=== PATIENT | female | born 1960 | race Caucasian/White ===

== ENCOUNTER 2025-05-14 08:23 | Inpatient (IN) | payer OTHER, SELFPAY ==
[2025-05-12 17:22] VITALS: BP 109/81
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
[2025-05-12 18:40] VITALS: BMI 34.5
[2025-05-12] MEDS: MORPHINE SULFATE 4 MG IV ×2 (18:48→21:45)
[2025-05-12] MEDS: NSS 1000 IV ×2 (18:48→21:05)
[2025-05-12 19:09] LABS: Hematocrit 35.9 % (37.0-47.0); Hemoglobin 12.3 g/dL (12.0-16.0); Mean Corp Hgb Conc. 34.3 g/dL (33.0-37.0); Mean Corpuscular Volume 89.3 fL (81.0-99.0); Nucleated Red Blood Cells % 0 %; Platelet Count 254 10^3/uL (130-400); Red Cell Dist. Width 13.2 % (11.5-14.5)
[2025-05-12] MEDS: ZOFRAN 4 MG IV (19:12)
[2025-05-12 19:15] LABS: ALT (SGPT) 66 U/L (0-35); AST (SGOT) 181 U/L (14-36); Albumin 4.0 g/dl (3.5-5.0); Alkaline Phosphatase 73 U/L (38-126); Blood Urea Nitrogen 25 mg/dl (7-17); Calcium 9.1 mg/dl (8.4-10.2); Carbon Dioxide 24 mmol/L (22-30); Chloride 102 mmol/L (98-107); Estimated Creatinine Clearance 102 ml/min; Glucose 84 mg/dl (70-99); Potassium 4.0 mmol/L (3.5-5.1); Sodium 135 mmol/L (135-145); Total Protein 6.6 g/dl (6.3-8.2); eGFR > 60.00
--- NOTE | 2025-05-12 21:45 | HPS.HSE ---
Family Physician
-
Family Physician: Nile Grigsby
Chief Complaint
-
R Knee Pain, Fall at Home
History of Present Illness
Patient is a 64y F with PMH significant for GERD and depression who presents to ED complaining of R knee pain s/p fall at home. Patient states that she slipped on a wobbly step on evening, falling and striking her R knee on the ground.
Patient had significant difficulty getting up and was unable to reach her phone to call for help. She states that she was on the ground for about 3 hours before she was able to crawl back inside. She states that she has been 'crab-walking' around
her house for the past three days - unable to stand. Her phone remained on the ground outside and she was unable to call for help. This AM she as discovered by friend and 911 was called.
Patient is unable to stand / ambulate due to pain.
She denies any head injury with the fall. No LOC. She denies any prodrome of lightheadedness, dizziness, chest pain or dyspnea.
Medical History
Past Medical History
Past Medical History: Reports Other
Additional Past Medical History:
Anxiety / Depression
ADD
GERD
IBS
Past Surgical History: Reports Other
Additional Past Surgical History:
Right Femur ORIF
Irvin Removal Revision x Multiple Episodes ([facility])
Social History
Tobacco: Smoker (Current every day smoker.)
Alcohol: None
Drug: None
Family History
Family History: Not pertinent
Allergies / Home Medications
Allergies reflects when Allergies were last updated in [employer].
Home Medications with original date entered in [employer]
Allergy/Medication List:
Allergies
Allergy/AdvReac Type Severity Reaction Status Date / Time
No Known Allergies Allergy Verified 05/12/25 17:22
Home Medications
atorvastatin 40 mg tablet 40 mg PO DAILY 05/12/25
bupropion HCl 300 mg 24 hr tablet, extended release 300 mg PO DAILY 05/12/25
clonazepam 0.5 mg tablet 0.5 mg PO BID PRN anxiety 05/12/25
dextroamphetamine-amphetamine 20 mg tablet (Adderall) 20 mg PO BID 05/12/25
pantoprazole 40 mg tablet,delayed release 40 mg PO DAILY 05/12/25
trazodone 50 mg tablet 50 mg PO HS 05/12/25
Review of Systems
-
History Source: Patient
A 12 point ROS was completed and negative except as noted: Yes
Constitutional: Denies Fever or Chills
Respiratory: Denies Cough or Trouble Breathing
Cardiac: Denies Chest Pain or Palpitations
Abdomen/GI: Denies Abdominal Pain, Nausea, Vomiting or Diarrhea
: Denies Dysuria, Frequency or Flank Pain
Musculoskeletal: Reports Joint Pain
Neurological: Denies Dizzy or Headache
Psych: Denies Depression or Anxiety
Physical Exam
Vital Signs
Vital Signs
Temp Pulse Resp BP Pulse Ox
98.7 F 113 16 109/81 98
05/12/25 17:22 05/12/25 17:22 05/12/25 17:22 05/12/25 17:22 05/12/25 18:32
Physical Exam
General: Other (64y F in no acute distress.)
HEENT: Moist mucous membranes and PERRLA
Respiratory: Clear; No Wheezes, Rales or Rhonchi
Cardiac: S1/S2 and Regular Rhythm; No Murmur
GI: Soft, Non Tender, Non Distended and Normal Bowel Sounds
Musculoskeletal: No Clubbing, No Cyanosis and Other (Ecchymosis and swelling around the R knee. Moves LE at hip and knee - but with noted discomfort. Significant pain with weight bearing / standing / attempts to ambulate.)
Neuro: AO x 3
Laboratory Results
-
05/12/25 18:47
05/12/25 18:47
Laboratory Results
Total Bilirubin 1.2 mg/dl (0.2-1.3) 05/12/25 18:47
AST 181 U/L (14-36) H 05/12/25 18:47
ALT 66 U/L (0-35) H 05/12/25 18:47
Alkaline Phosphatase 73 U/L (38-126) 05/12/25 18:47
Impression/Plan
-
A/P: Patient is a 64y F with PMH significant for depression and GERD who presents to ED complaining of R knee pain s/p fall at home on evening.
Right Patella Fracture
Ambulatory Dysfunction secondary to the above
Fall at Home
- Observe overnight for pain control / supportive care.
- Patient unable to stand / ambulate safely at this time.
- Pain control, PT / OT evaluations.
- Maintain knee immobilizer.
- Ortho consult for additional recommendations.
- Follow for improvement in pain.
Anxiety / Depression
- Stable. Continue usual home med regimen.
- Can hold Adderall acutely.
IBS / GERD
- Stable. Continue PPI.
DVT Prophylaxis: Subcut Heparin
Code Status: Full
[2025-05-12 23:30] VITALS: BP 133/68; BMI 34.2
[2025-05-13] MEDS: DESYREL 50 MG PO ×2 (00:03→21:49)
[2025-05-13] MEDS: NSS 1000 IV ×3 (00:04→17:41)
[2025-05-13] MEDS: DILAUDID 0.5 MG IV ×3 (05:55→20:18)
[2025-05-13 06:00] VITALS: BMI 34.4
[2025-05-13 07:25] LABS: Hematocrit 33.8 % (37.0-47.0); Hemoglobin 11.0 g/dL (12.0-16.0); Mean Corp Hgb Conc. 32.5 g/dL (33.0-37.0); Mean Corpuscular Volume 93.4 fL (81.0-99.0); Platelet Count 241 10^3/uL (130-400); Red Cell Dist. Width 13.4 % (11.5-14.5)
[2025-05-13 08:11] LABS: Blood Urea Nitrogen 16 mg/dl (7-17); Calcium 7.9 mg/dl (8.4-10.2); Carbon Dioxide 27 mmol/L (22-30); Chloride 109 mmol/L (98-107); Estimated Creatinine Clearance 102 ml/min; Glucose 91 mg/dl (70-99); Potassium 3.4 mmol/L (3.5-5.1); Sodium 137 mmol/L (135-145); eGFR > 60.00
[2025-05-13 08:18] VITALS: BP 96/54
[2025-05-13] MEDS: HEPARIN 5000 UNITS SC ×2 (08:30→20:12)
[2025-05-13] MEDS: WELLBUTRIN XL (24 hour extended release) 300 MG PO (08:31)
[2025-05-13] MEDS: TYLENOL 1000 MG PO ×3 (08:31→21:48)
[2025-05-13] MEDS: PROTONIX 40 MG PO (08:31)
[2025-05-13] MEDS: LYRICA 75 MG PO ×2 (08:33→20:11)
[2025-05-13] MEDS: KCL 20 MEQ PO (10:13)
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
--- NOTE | 2025-05-13 11:34 | W.PN.HOSP.TC ---
Today's Communication/Plan
-
Assessment / Plan
Assessment / Plan
General: No Apparent Distress, Comfortable and Conversant
HEENT: NormoCephalic, Moist mucous membranes, Atraumatic
Respiratory: Clear and Non Labored Respirations
Cardiac: S1/S2 and Regular Rhythm; No Rub or Gallop
GI: Soft, Non Tender, Non Distended and Normal Bowel Sounds
Musculoskeletal: No Edema, right knee immobilizer in place
Skin: Warm and dry
: NO Armstrong
Neuro: Awake, Alert, Nonfocal/grossly intact
Psych: Calm and Intact Judgment/Insight
Ms. Diaz is a 64-year-old female with history of GERD, anxiety and depression, IBS, ADD who presented with right knee pain. Her pain is the result of a mechanical fall 3 days prior to arrival. She has had difficulty ambulating since that time has
been crawling around her house since her injury. Imaging in the ED showed a nondisplaced right patellar fracture. She was admitted for further evaluation and management.
Nondisplaced right patellar fracture:
- Secondary to trauma from mechanical fall at home
- Evaluated by Ortho, nonoperative management with knee immobilizer full-time for 4 weeks, then only during the day for 2 weeks
- To be evaluated by PT/OT
- Will need outpatient Ortho follow-up in 2 weeks for repeat x-ray
Acute traumatic rhabdomyolysis:
- Suspect secondary to fall at home
- Continue aggressive IV fluids
- Renal function currently within normal limits
- Monitor CK level, 7800 => 4600
Transaminitis:
- AST significantly more elevated than ALT
- No evidence of cholestasis
- Will inquire about alcohol use
- Monitor for resolution, if no improvement will investigate further with dedicated imaging
Hypokalemia:
- Mild with serum potassium 3.4 today
- Will replete cautiously considering current rhabdomyolysis
DVT prophylaxis: Subcu heparin
CODE STATUS: Full code
Anticipated Discharge: 24 - 48 hours
Subjective/Interval History
-
Date of Service: May 13, 2025
Patient was seen and examined at bedside this morning. Right knee immobilizer in place. Pain well-managed.
Objective Data
-
Labs:
Laboratory Results
05/13/25
05:29
WBC 8.9
Hgb 11.0 L
Hct 33.8 L
Plt Count 241
Sodium 137
Potassium 3.4 L
Chloride 109 H
Carbon Dioxide 27
BUN 16
Creatinine 0.6
Glucose 91
Calcium 7.9 L
Vital Signs:
Vital Signs
Temp Pulse Resp BP Pulse Ox
98.3 F 97 18 96/54 94
05/13/25 08:18 05/13/25 08:18 05/13/25 08:18 05/13/25 08:18 05/13/25 08:18
I&O
05/12/25 05/13/25 05/14/25
06:59 06:59 06:59
Intake Total 480 / 480
Output Total 250 / 250
Balance 230 / 230
Review of Systems
-
History Source: Patient
All other systems: Reviewed and negative
Musculoskeletal: Reports Joint Pain (Right knee pain)
Physical Exam
-
General: No Apparent Distress
[2025-05-13] MEDS: FLUSH (NSS) 1 FLUSH IV (12:09)
[2025-05-13 12:23] VITALS: BP 106/58; PULSE 93; O2SAT 94
[2025-05-13 12:25] VITALS: BP 106/58; PULSE 93
--- NOTE | 2025-05-13 13:09 | CM ---
Addendum entered by Carine Dyson 05/14/25 08:01:
CM receive message after hours from DIl with [employer] policy number
#[phone]
Update to admissions
Original Note:
CM met with pt bedside
Pt resides alone in a 1st floor apartment with 2+2 FRANKIE
[address] [address]
Pt notes she is independent without any ADs, drives+
She has a WW and SPC from prior hip surgery
Pt does not have a POA
Pt ntoed she has [employer] as secondayr, does not have card with her
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
PCP- Nile Grigsby
Rx- [facility]
Pt requested to add her son/Joao and DIL/Desirae to contact list
Update to admissions
Call to [facility]/Desirae with update
PT/OT pending
Pt with R Patella fx, medical management
WBAT w/ knee immobilizer
Pt is OBS-BENOIT completed, copy provided
Plan to F/U with [facility] waiver regarding edibility if SNF needs on dc
[place] [facility] info provided to [facility] for home and community based services
She noted forgetfulness and functional decline
Discharge Disposition- home with VN vs SNF
[2025-05-13 15:58] VITALS: BP 121/68
--- NOTE | 2025-05-13 16:40 | PTCARENOTE ---
Pt AAO x3, PRADO;OOB to chair with assist x1-2/walker, wears RLE immobilizer. VSS. On room air- pulseox 93%, no SOB noted. Abd large, soft, brittney PO well. Incont large amts clear anabella urine, pt requesting Purewick catheter d/t discomfort when
attempting to get OOB/use BSC; does not qant to use bedpan. IV NSS @ 125 ml/hr infusing via Rt hand site without sx of infiltration. Will continue to monitor.
[2025-05-13 23:01] VITALS: BP 104/54
[2025-05-14] MEDS: NSS 1000 IV ×3 (01:20→21:23)
[2025-05-14 05:49] VITALS: BMI 34.9
[2025-05-14] MEDS: DILAUDID 0.5 MG IV (06:36)
[2025-05-14 07:00] VITALS: BP 127/67
[2025-05-14] MEDS: LYRICA 75 MG PO ×2 (07:32→19:24)
[2025-05-14] MEDS: WELLBUTRIN XL (24 hour extended release) 300 MG PO (07:33)
[2025-05-14] MEDS: HEPARIN 5000 UNITS SC ×2 (07:33→19:24)
[2025-05-14] MEDS: PROTONIX 40 MG PO (07:33)
[2025-05-14] MEDS: TYLENOL 1000 MG PO ×3 (07:33→21:25)
[2025-05-14 07:35] LABS: Hematocrit 33.1 % (37.0-47.0); Hemoglobin 11.0 g/dL (12.0-16.0); Mean Corp Hgb Conc. 33.2 g/dL (33.0-37.0); Mean Corpuscular Volume 94.0 fL (81.0-99.0); Nucleated Red Blood Cells % 0 %; Platelet Count 222 10^3/uL (130-400); Red Cell Dist. Width 13.6 % (11.5-14.5)
[2025-05-14 08:03] LABS: ALT (SGPT) 54 U/L (0-35); AST (SGOT) 93 U/L (14-36); Albumin 2.9 g/dl (3.5-5.0); Alkaline Phosphatase 52 U/L (38-126); Blood Urea Nitrogen 7 mg/dl (7-17); Calcium 7.9 mg/dl (8.4-10.2); Carbon Dioxide 30 mmol/L (22-30); Chloride 108 mmol/L (98-107); Estimated Creatinine Clearance 103 ml/min; Glucose 88 mg/dl (70-99); Potassium 3.6 mmol/L (3.5-5.1); Sodium 139 mmol/L (135-145); Total Protein 5.4 g/dl (6.3-8.2); eGFR > 60.00
[2025-05-14 09:32] VITALS: BP 121/63; BP 121/68; PULSE 91; O2SAT 96
[2025-05-14] MEDS: ROXICODONE 5 MG PO ×2 (10:31→19:23)
[2025-05-14] MEDS: SENOKOT 8.6 MG PO ×2 (10:31→19:23)
--- NOTE | 2025-05-14 14:13 | W.PN.HOSP.TC ---
Today's Communication/Plan
-
Assessment / Plan
Assessment / Plan
General: No Apparent Distress, Comfortable and Conversant
HEENT: NormoCephalic, Moist mucous membranes, Atraumatic
Respiratory: Clear and Non Labored Respirations
Cardiac: S1/S2 and Regular Rhythm; No Rub or Gallop
GI: Soft, Non Tender, Non Distended and Normal Bowel Sounds
Musculoskeletal: No Edema, right knee immobilizer in place
Skin: Warm and dry
: NO Armstrong
Neuro: Awake, Alert, Nonfocal/grossly intact
Psych: Calm and Intact Judgment/Insight
Ms. Diaz is a 64-year-old female with history of GERD, anxiety and depression, IBS, ADD who presented with right knee pain. Her pain is the result of a mechanical fall 3 days prior to arrival. She has had difficulty ambulating since that time has
been crawling around her house since her injury. Imaging in the ED showed a nondisplaced right patellar fracture. She was admitted for further evaluation and management.
Nondisplaced right patellar fracture:
- Secondary to trauma from mechanical fall at home
- Evaluated by Ortho, nonoperative management with knee immobilizer full-time for 4 weeks, then only during the day for 2 weeks
- Will need outpatient Ortho follow-up in 2 weeks for repeat x-ray
- PT/OT recommending SNF
Acute traumatic rhabdomyolysis:
- Suspect secondary to fall at home
- Continue aggressive IV fluids
- Renal function remains within normal limits
- Monitor CK level, 7800 => 4600 => 1400
- If CK level drops below 1000 can discontinue IV fluids and discharge with repeat labs in a few days
Transaminitis:
- AST significantly more elevated than ALT
- No evidence of cholestasis
- Improving, monitor until within normal limits
Hypokalemia:
- Resolved, will monitor
DVT prophylaxis: Subcu heparin
CODE STATUS: Full code
Anticipated Discharge: 24 - 48 hours
Subjective/Interval History
-
Date of Service: May 14, 2025
Patient was seen and examined at bedside this morning. Pain well-controlled. Remains on IV fluids for rhabdo.
Objective Data
-
Labs:
Laboratory Results
05/14/25
06:48
WBC 7.1
Hgb 11.0 L
Hct 33.1 L
Plt Count 222
Sodium 139
Potassium 3.6
Chloride 108 H
Carbon Dioxide 30
BUN 7
Creatinine 0.5 L
Glucose 88
Calcium 7.9 L
Total Bilirubin 0.5
AST 93 H
ALT 54 H
Alkaline Phosphatase 52
Vital Signs:
Vital Signs
Temp Pulse Resp BP Pulse Ox
98.7 F 90 12 127/67 95
05/14/25 07:00 05/14/25 07:00 05/14/25 07:00 05/14/25 07:00 05/14/25 11:16
I&O
05/13/25 05/14/25 05/15/25
06:59 06:59 06:59
Intake Total 480 / 480 3540 / 3540 120 / 120
Output Total 250 / 250 1350 / 1350 450 / 450
Balance 230 / 230 2190 / 2190 -330 / -330
Review of Systems
-
History Source: Patient
All other systems: Reviewed and negative
Musculoskeletal: Reports Joint Pain (Right knee pain)
Physical Exam
-
General: No Apparent Distress
[2025-05-14 15:00] VITALS: BP 108/68
--- NOTE | 2025-05-14 16:28 | CM ---
Pt changed to Inpatient IMM reviewed signed on chart.
PAC data reviewed with pt .
PT indicate SNF at discharge.
Pt lives by herself and realizes she needs SNF.
PLAN Enter SNF choices after picked
[2025-05-14] MEDS: DESYREL 50 MG PO (21:25)
[2025-05-14 23:09] VITALS: BP 114/64
[2025-05-15 05:26] VITALS: BMI 34.7
[2025-05-15 06:30] LABS: Hematocrit 34.5 % (37.0-47.0); Hemoglobin 11.6 g/dL (12.0-16.0); Mean Corp Hgb Conc. 33.6 g/dL (33.0-37.0); Mean Corpuscular Volume 92.2 fL (81.0-99.0); Nucleated Red Blood Cells % 0 %; Platelet Count 250 10^3/uL (130-400); Red Cell Dist. Width 13.5 % (11.5-14.5)
[2025-05-15 07:04] LABS: Blood Urea Nitrogen 5 mg/dl (7-17); Calcium 8.5 mg/dl (8.4-10.2); Carbon Dioxide 30 mmol/L (22-30); Chloride 108 mmol/L (98-107); Estimated Creatinine Clearance 103 ml/min; Glucose 86 mg/dl (70-99); Potassium 3.5 mmol/L (3.5-5.1); Sodium 141 mmol/L (135-145); eGFR > 60.00
[2025-05-15 07:30] VITALS: BP 188/77
[2025-05-15] MEDS: SENOKOT 8.6 MG PO (07:46)
[2025-05-15] MEDS: WELLBUTRIN XL (24 hour extended release) 300 MG PO (07:46)
[2025-05-15] MEDS: LYRICA 75 MG PO ×2 (07:46→19:55)
[2025-05-15] MEDS: PROTONIX 40 MG PO (07:46)
[2025-05-15] MEDS: NSS 1000 IV ×2 (07:46→17:33)
[2025-05-15] MEDS: TYLENOL 1000 MG PO ×3 (07:47→22:27)
[2025-05-15] MEDS: HEPARIN 5000 UNITS SC ×2 (07:47→19:57)
[2025-05-15] MEDS: ROXICODONE 5 MG PO ×2 (12:54→17:32)
--- NOTE | 2025-05-15 14:03 | W.PN.HOSP.TC ---
Today's Communication/Plan
-
Assessment / Plan
Assessment / Plan
General: No Apparent Distress, Comfortable and Conversant
HEENT: NormoCephalic, Moist mucous membranes, Atraumatic
Respiratory: Clear and Non Labored Respirations
Cardiac: S1/S2 and Regular Rhythm; No Rub or Gallop
GI: Soft, Non Tender, Non Distended and Normal Bowel Sounds
Musculoskeletal: No Edema, right knee immobilizer in place
Skin: Warm and dry
: NO Armstrong
Neuro: Awake, Alert, Nonfocal/grossly intact
Psych: Calm and Intact Judgment/Insight
Ms. Diaz is a 64-year-old female with history of GERD, anxiety and depression, IBS, ADD who presented with right knee pain. Her pain is the result of a mechanical fall 3 days prior to arrival. She has had difficulty ambulating since that time has
been crawling around her house since her injury. Imaging in the ED showed a nondisplaced right patellar fracture. She was admitted for further evaluation and management.
Nondisplaced right patellar fracture:
- Secondary to trauma from mechanical fall at home
- Evaluated by Ortho, nonoperative management with knee immobilizer full-time for 4 weeks through 06/09/2025, then can wear the immobilizer only during the day for 2 weeks
- Will need outpatient Ortho follow-up in 2 weeks around 05/26 for repeat x-ray
- PT/OT recommending SNF, placement pending, medically stable
Acute traumatic rhabdomyolysis:
- Suspect secondary to fall at home
- Renal function remains within normal limits
- Monitor CK level, 7800 => 4600 => 1400 => 936
- Will continue IV fluids through today while still hospitalized
Transaminitis:
- AST significantly more elevated than ALT
- No evidence of cholestasis
- Improving, monitor until within normal limits
Hypokalemia:
- Resolved, will monitor
DVT prophylaxis: Subcu heparin
CODE STATUS: Full code
Anticipated Discharge: 24 - 48 hours
Subjective/Interval History
-
Date of Service: May 15, 2025
Patient was seen and examined this morning. CK now less than 1000. Feeling well and awaiting SNF placement.
Objective Data
-
Labs:
Laboratory Results
05/15/25
06:03
WBC 5.6
Hgb 11.6 L
Hct 34.5 L
Plt Count 250
Sodium 141
Potassium 3.5
Chloride 108 H
Carbon Dioxide 30
BUN 5 L
Creatinine 0.5 L
Glucose 86
Calcium 8.5
Vital Signs:
Vital Signs
Temp Pulse Resp BP Pulse Ox
98.5 F 80 18 188/77 92
05/15/25 07:30 05/15/25 07:30 05/15/25 07:30 05/15/25 07:30 05/15/25 07:45
I&O
05/14/25 05/15/25 05/16/25
06:59 06:59 06:59
Intake Total 3540 / 3540 3000 / 3000
Output Total 1350 / 1350 450 / 450
Balance 2190 / 2190 2550 / 2550
Review of Systems
-
History Source: Patient
All other systems: Reviewed and negative
Physical Exam
-
General: No Apparent Distress
[2025-05-15 15:24] VITALS: BP 124/81; BP 150/84; PULSE 98; O2SAT 97
--- NOTE | 2025-05-15 15:37 | CM ---
PAC data reviewed with pt .
[facility]
Referrals placed in care port.
PLAN Locate SNF
--- NOTE | 2025-05-15 16:50 | PTCARENOTE ---
Pt AAO x3, anxious at times. PRADO; OOB to chair/BSC with assist x1/cane, brittney well. Pt wearing RLE immobilizer. VSS. On room air- pulse ox 97%, no SOB noted. Abd obese, soft, brittney PO well. Voids on BSC without difficulty Resting in bed at
present, no c/o. Will continue to monitor.
[2025-05-15] MEDS: SENOKOT PO (19:57)
[2025-05-15] MEDS: DESYREL 50 MG PO (22:27)
[2025-05-15 23:30] VITALS: BP 112/80
[2025-05-16] MEDS: NSS 1000 IV (02:05)
[2025-05-16 06:00] VITALS: BMI 34.0
[2025-05-16 06:34] LABS: Hematocrit 34.4 % (37.0-47.0); Hemoglobin 11.6 g/dL (12.0-16.0); Mean Corp Hgb Conc. 33.7 g/dL (33.0-37.0); Mean Corpuscular Volume 91.7 fL (81.0-99.0); Nucleated Red Blood Cells % 0 %; Platelet Count 269 10^3/uL (130-400); Red Cell Dist. Width 13.8 % (11.5-14.5)
[2025-05-16 07:00] VITALS: BP 124/62
[2025-05-16 07:07] LABS: ALT (SGPT) 48 U/L (0-35); AST (SGOT) 51 U/L (14-36); Albumin 3.2 g/dl (3.5-5.0); Alkaline Phosphatase 51 U/L (38-126); Blood Urea Nitrogen 6 mg/dl (7-17); Calcium 8.1 mg/dl (8.4-10.2); Carbon Dioxide 29 mmol/L (22-30); Chloride 108 mmol/L (98-107); Estimated Creatinine Clearance 101 ml/min; Glucose 87 mg/dl (70-99); Potassium 3.4 mmol/L (3.5-5.1); Sodium 140 mmol/L (135-145); Total Protein 5.8 g/dl (6.3-8.2); eGFR > 60.00
[2025-05-16] MEDS: ROXICODONE 5 MG PO (07:22)
[2025-05-16] MEDS: HEPARIN 5000 UNITS SC ×2 (08:02→20:48)
[2025-05-16] MEDS: SENOKOT 8.6 MG PO ×2 (08:02→20:49)
[2025-05-16] MEDS: TYLENOL 1000 MG PO ×2 (08:03→16:36)
[2025-05-16] MEDS: PROTONIX 40 MG PO (08:03)
[2025-05-16] MEDS: LYRICA 75 MG PO ×2 (08:03→20:49)
[2025-05-16] MEDS: WELLBUTRIN XL (24 hour extended release) 300 MG PO (08:03)
[2025-05-16 10:20] VITALS: BP 152/68; PULSE 74; O2SAT 99
[2025-05-16] MEDS: KCL 40 MEQ PO (10:24)
[2025-05-16] MEDS: NSS IV (12:17)
[2025-05-16 15:00] VITALS: BP 131/74
--- NOTE | 2025-05-16 15:31 | W.PN.HOSP.TC ---
Today's Communication/Plan
-
Assessment / Plan
Assessment / Plan
General: No Apparent Distress, Comfortable and Conversant
HEENT: NormoCephalic, Moist mucous membranes, Atraumatic
Respiratory: Clear and Non Labored Respirations
Cardiac: S1/S2 and Regular Rhythm; No Rub or Gallop
GI: Soft, Non Tender, Non Distended and Normal Bowel Sounds
Musculoskeletal: No Edema, right knee immobilizer in place
Skin: Warm and dry
: NO Armstrong
Neuro: Awake, Alert, Nonfocal/grossly intact
Psych: Calm and Intact Judgment/Insight
Ms. Diaz is a 64-year-old female with history of GERD, anxiety and depression, IBS, ADD who presented with right knee pain. Her pain is the result of a mechanical fall 3 days prior to arrival. She has had difficulty ambulating since that time has
been crawling around her house since her injury. Imaging in the ED showed a nondisplaced right patellar fracture. She was admitted for further evaluation and management.
Nondisplaced right patellar fracture:
- Secondary to trauma from mechanical fall at home
- Evaluated by Ortho, nonoperative management with knee immobilizer full-time for 4 weeks through 06/09/2025, then can wear the immobilizer only during the day for 2 weeks
- Will need outpatient Ortho follow-up in 2 weeks around 05/26 for repeat x-ray
- PT/OT recommending SNF, placement pending, medically stable
Acute traumatic rhabdomyolysis:
- Suspect secondary to fall at home
- Renal function remains within normal limits
- Monitor CK level, 7800 => 4600 => 1400 => 936 => 459
- No longer requiring IV fluids, will discontinue
Transaminitis:
- AST significantly more elevated than ALT
- No evidence of cholestasis
- Improving, monitor until within normal limits
Hypokalemia:
- Serum potassium 3.4, repleted, will monitor
DVT prophylaxis: Subcu heparin
CODE STATUS: Full code
Anticipated Discharge: 24 - 48 hours
Subjective/Interval History
-
Date of Service: May 16, 2025
Patient was seen and examined at bedside this morning. Rhabdomyolysis continues to improve. Will now stop IV fluids.
Objective Data
-
Labs:
Laboratory Results
05/16/25
05:52
WBC 6.3
Hgb 11.6 L
Hct 34.4 L
Plt Count 269
Sodium 140
Potassium 3.4 L
Chloride 108 H
Carbon Dioxide 29
BUN 6 L
Creatinine 0.5 L
Glucose 87
Calcium 8.1 L
Total Bilirubin 0.4
AST 51 H
ALT 48 H
Alkaline Phosphatase 51
Vital Signs:
Vital Signs
Temp Pulse Resp BP Pulse Ox
98.1 F 87 12 124/62 94
05/16/25 07:00 05/16/25 07:00 05/16/25 07:00 05/16/25 07:00 05/16/25 07:00
I&O
05/15/25 05/16/25 05/17/25
06:59 06:59 06:59
Intake Total 3000 / 3000 2700 / 2700
Output Total 450 / 450
Balance 2550 / 2550 2700 / 2700
Review of Systems
-
History Source: Patient
All other systems: Reviewed and negative
Physical Exam
-
General: No Apparent Distress
--- NOTE | 2025-05-16 16:30 | CM ---
[facility] declined patient .
Asked for additional SNF.Added Jennifer Cantu,[facility] Hernaned[facility].\\
Spoke with Rupinder from [facility] [place] they are still reviewing clinical referral resent.
[facility] Pt will need [facility].
PLAN Located SNF and obtain auth
[2025-05-16] MEDS: EFFEXOR XR 150 MG PO (16:36)
[2025-05-16] MEDS: DESYREL 50 MG PO (20:59)
[2025-05-16 23:34] VITALS: BP 127/58
[2025-05-17 05:03] VITALS: BMI 33.6
[2025-05-17 07:00] VITALS: BP 131/66
[2025-05-17 08:05] LABS: ALT (SGPT) 68 U/L (0-35); AST (SGOT) 86 U/L (14-36); Albumin 3.5 g/dl (3.5-5.0); Alkaline Phosphatase 61 U/L (38-126); Blood Urea Nitrogen 7 mg/dl (7-17); Calcium 9.1 mg/dl (8.4-10.2); Carbon Dioxide 29 mmol/L (22-30); Chloride 108 mmol/L (98-107); Estimated Creatinine Clearance 101 ml/min; Glucose 83 mg/dl (70-99); Magnesium 1.6 mg/dl (1.6-2.3); Potassium 3.7 mmol/L (3.5-5.1); Sodium 140 mmol/L (135-145); Total Protein 6.2 g/dl (6.3-8.2); eGFR > 60.00
[2025-05-17] MEDS: LYRICA 75 MG PO ×2 (08:51→20:44)
[2025-05-17] MEDS: HEPARIN 5000 UNITS SC ×2 (08:52→20:44)
[2025-05-17] MEDS: EFFEXOR XR 150 MG PO (08:53)
[2025-05-17] MEDS: PROTONIX 40 MG PO (08:53)
[2025-05-17] MEDS: WELLBUTRIN XL (24 hour extended release) 300 MG PO (08:53)
[2025-05-17] MEDS: SENOKOT 8.6 MG PO (08:53)
[2025-05-17] MEDS: TYLENOL 1000 MG PO ×4 (08:53→20:44)
[2025-05-17] MEDS: ROXICODONE 5 MG PO ×2 (08:57→17:56)
--- NOTE | 2025-05-17 13:48 | W.PN.HOSP.TC ---
Addendum entered and electronically signed by Damon Beauchamp DO 05/18/25 16:59:
Clarification:
- Nondisplaced right patellar fracture
Multifactorial, traumatic, age related osteoporosis, postsurgical change
Original Note:
Today's Communication/Plan
-
Assessment / Plan
Assessment / Plan
General: No Apparent Distress, Comfortable and Conversant
HEENT: NormoCephalic, Moist mucous membranes, Atraumatic
Respiratory: Clear and Non Labored Respirations
Cardiac: S1/S2 and Regular Rhythm; No Rub or Gallop
GI: Soft, Non Tender, Non Distended and Normal Bowel Sounds
Musculoskeletal: No Edema, right knee immobilizer in place
Skin: Warm and dry
: NO Armstrong
Neuro: Awake, Alert, Nonfocal/grossly intact
Psych: Calm and Intact Judgment/Insight
Ms. Diaz is a 64-year-old female with history of GERD, anxiety and depression, IBS, ADD who presented with right knee pain. Her pain is the result of a mechanical fall 3 days prior to arrival. She has had difficulty ambulating since that time has
been crawling around her house since her injury. Imaging in the ED showed a nondisplaced right patellar fracture. She was admitted for further evaluation and management.
Nondisplaced right patellar fracture:
- Secondary to trauma from mechanical fall at home
- Evaluated by Ortho, nonoperative management with knee immobilizer full-time for 4 weeks through 06/09/2025, then can wear the immobilizer only during the day for 2 weeks
- Will need outpatient Ortho follow-up in 2 weeks around 05/26 for repeat x-ray
- PT/OT recommending SNF, placement pending, medically stable
Acute traumatic rhabdomyolysis:
- Suspect secondary to fall at home
- Renal function remains within normal limits
- Monitor CK level, 7800 => 4600 => 1400 => 936 => 459 => 228
- No longer requiring IV fluids
Transaminitis:
- AST significantly more elevated than ALT
- No evidence of cholestasis
- Improved but not resolved, will need outpatient follow-up for repeat labs
- Holding statin, use Tylenol cautiously
Hypokalemia:
- Resolved
DVT prophylaxis: Subcu heparin
CODE STATUS: Full code
Anticipated Discharge: 24 - 48 hours
Subjective/Interval History
-
Date of Service: May 17, 2025
Patient was seen and examined at bedside this morning. No acute events overnight. Awaiting SNF placement.
Objective Data
-
Labs:
Laboratory Results
05/17/25
06:30
Sodium 140
Potassium 3.7
Chloride 108 H
Carbon Dioxide 29
BUN 7
Creatinine 0.5 L
Glucose 83
Calcium 9.1
Total Bilirubin 0.5
AST 86 H
ALT 68 H
Alkaline Phosphatase 61
Vital Signs:
Vital Signs
Temp Pulse Resp BP Pulse Ox
98 F 83 16 131/66 95
05/17/25 07:00 05/17/25 07:00 05/17/25 07:00 05/17/25 07:00 05/17/25 07:00
I&O
05/16/25 05/17/25 05/18/25
06:59 06:59 06:59
Intake Total 2700 / 2700 480 / 480
Balance 2700 / 2700 480 / 480
Review of Systems
-
History Source: Patient
All other systems: Reviewed and negative
Physical Exam
-
General: No Apparent Distress
[2025-05-17 15:00] VITALS: BP 129/74
--- NOTE | 2025-05-17 15:39 | CM ---
No SNF can accept patient either due to no beds or did not accept insurance.
Additional referral placed for [facility]
PLAN Located SNF and obtain auth
--- NOTE | 2025-05-17 16:34 | PN.CDI ---
CDI
- -
CDI:
Physician Documentation Request
Admit Date: 05/14/25 08:23
Dear Doctor Nito,
Please review the following and provide your response in the progress notes.
Clinical Indicators:
Exams: CR Knee- Right 4 Or More View*
FINDINGS:
#...postsurgical change of the distal right femoral shaft.
#...at least one radiolucent line through the anterior lower half of the patella
#...concerning for acute fracture. A bipartite patella cannot be completely excluded.
#IMPRESSION:
#...Probable acute patellar fracture. Clinical correlation recommended
#...Moderate medial and lateral compartment chondrocalcinosis.
#...Bony demineralization.
#...Postsurgical change.
H+P, 05/12
#Past Surgical History:
#...Right Femur ORIF
#...Irvin Removal Revision x Multiple Episodes ([facility])
PN, 05/17
#Nondisplaced right patellar fracture:
#...- Secondary to trauma from mechanical fall at home
Based on the above and your clinical assessment, please clarify the etiology of the right patellar fracture:
Multifactorial, traumatic, age related osteoporosis, postsurgical change
Traumatic fracture only
Other, (please specify)
Type Fracture
Age-related With current pathological fx
Drug induced (specify drug) without current pathological fx
Idiopathic
Osteoporosis of disuse
Due to post surgical malabsorption
Post traumatic
Post oophorectomy osteoporosis
Other (please specify)
Use of terms such as suspected, likely, concern for, or probable (associated with a specific diagnosis that is being evaluated, monitored, or treated as if it exists) are acceptable and can be coded in the inpatient setting, when documented at the
time of discharge.
Thank you,
Daphne Beasley RN BSN CCDS
CDI Specialist
Please contact via tiger text
Please use your independent medical judgment in providing your response.
[2025-05-17] MEDS: DESYREL 50 MG PO (20:44)
[2025-05-17] MEDS: SENOKOT PO (20:45)
[2025-05-17 23:00] VITALS: BP 113/96
[2025-05-18 05:19] VITALS: BMI 33.4
[2025-05-18 06:55] VITALS: BP 116/82
[2025-05-18] MEDS: HEPARIN 5000 UNITS SC (07:59)
[2025-05-18] MEDS: TYLENOL 1000 MG PO (08:00)
[2025-05-18] MEDS: EFFEXOR XR 150 MG PO (08:00)
[2025-05-18] MEDS: WELLBUTRIN XL (24 hour extended release) 300 MG PO (08:00)
[2025-05-18] MEDS: PROTONIX 40 MG PO (08:00)
[2025-05-18] MEDS: SENOKOT 8.6 MG PO (08:01)
[2025-05-18] MEDS: LYRICA 75 MG PO (08:03)
[2025-05-18] MEDS: ROXICODONE 5 MG PO (08:30)
--- NOTE | 2025-05-18 11:27 | W.DCSUMMARY ---
Discharge Summary
Discharge Data
Date of Admission: 05/14/25
Date of Discharge: 05/18/25
Total time spent discharging patient (in min): 44
-
Pending Results: No
Hospital Course
Ms. Diaz is a 64-year-old female with history of GERD, anxiety and depression, IBS, ADD who presented with right knee pain. Her pain is the result of a mechanical fall 3 days prior to arrival. She had difficulty ambulating since that time had been
crawling around her house since her injury. Imaging in the ED showed a nondisplaced right patellar fracture. She was admitted for further evaluation and management.
She was evaluated by orthopedics who recommended nonoperative management with a knee immobilizer. She will need to wear the knee immobilizer full-time for 4 weeks through 06/09/2025, and then can wear the immobilizer only during the day for 2 weeks.
She will need outpatient Ortho follow-up around 05/26/2025 for repeat x-ray. Physical and Occupational Therapy recommended ongoing therapy at a group home facility, which has been arranged.
Initial labs at the time of admission showed significantly elevated CK level of 7800 likely due to trauma from her fall. Her rhabdomyolysis improved with aggressive IV fluids. Her CK level improved to 459, at which time IV fluids were discontinued
after which her CK level further improved to 228. She also had a significant transaminitis at the time of admission which also improved with IV fluids. Her transaminitis did not completely resolve. Her atorvastatin has been held. She will need
repeat lab work in 5 to 7 days to monitor for resolution of her CK level and transaminitis. She had a mild hypokalemia during this admission which was repleted with oral potassium chloride. Her electrolyte levels should also be monitored on repeat
lab work. At the time of hospital discharge she was medically stable.
General: No Apparent Distress, Comfortable and Conversant
HEENT: NormoCephalic, Moist mucous membranes, Atraumatic
Respiratory: Clear and Non Labored Respirations
Cardiac: S1/S2 and Regular Rhythm; No Rub or Gallop
GI: Soft, Non Tender, Non Distended and Normal Bowel Sounds
Musculoskeletal: No Edema, right knee immobilizer in place
Skin: Warm and dry
: NO Armstrong
Neuro: Awake, Alert, Nonfocal/grossly intact
Psych: Calm and Intact Judgment/Insight
Discharge Plan
-
Patient Disposition: Fdc/SNF
Discharge Diagnosis/Procedures: Nondisplaced right patellar fracture
Acute traumatic rhabdomyolysis
Transaminitis
Activity Restrictions/Additional Instructions:
You were admitted for treatment of a nondisplaced right patellar fracture due to trauma from a fall. You were evaluated by orthopedics who recommended nonoperative management with a knee immobilizer. You will need to wear the knee immobilizer
full-time for 4 weeks through 06/09/2025. After that you can switch to wearing the immobilizer only during the day for the next 2 weeks. You will need to follow-up with orthopedics in the office in 2 weeks (around 05/26/2025) for repeat x-rays. In
the meantime you will be discharged from the hospital to a group home facility for ongoing therapy.
At the time of your admission your labs showed that you had acute traumatic rhabdomyolysis, which means your muscle cells were damaged from your injury and released some of their chemicals into your bloodstream which could potentially cause kidney
damage. You were treated with aggressive IV fluids and your rhabdomyolysis resolved. Your kidney function remains normal. You were also found to have mildly abnormal liver function tests. Your liver function tests improved during your
hospitalization but did not completely resolve. You will need to follow-up with your primary care physician for repeat lab work to monitor your liver function tests and to make sure your CK level (from your rhabdomyolysis) has resolved to within
normal limits.
Referrals:
Nile Grigsby MD [Family Provider, Family Practice]
Prescriptions:
New
sennosides [Merissa-sidney] 8.6 mg Tablet
8.6 mg PO BID Qty: 10 0RF
oxycodone 5 mg Tablet
5 mg PO Q4HPRN PRN (Reason: mod-sev pain) Qty: 12 0RF
Continued
clonazepam 0.5 mg Tablet
0.5 mg PO BID PRN (Reason: anxiety)
pantoprazole 40 mg Tablet,Delayed Release (Dr/Ec)
40 mg PO DAILY
bupropion HCl 300 mg Tablet Extended Release 24 Hr
300 mg PO DAILY
trazodone 50 mg Tablet
50 mg PO HS
dextroamphetamine-amphetamine [Adderall] 20 mg Tablet
20 mg PO BID
pregabalin 75 mg Capsule
75 mg PO BID
venlafaxine 150 mg Capsule,Extended Release 24hr
150 mg PO DAILY
Held
atorvastatin 40 mg Tablet
40 mg PO DAILY
Hold Instructions: Hold until repeat liver function tests are within normal limits
Discharge Orders:
Discharge Patient (As Directed); Ordered 05/18/25
Ordered By: Damon Beauchamp
Discharge Date and Time
Print Language: SERBIAN
--- NOTE | 2025-05-18 11:33 | CM ---
indicated pt ready for discharge.
Aracely confirmed bed available at [facility] today .
Pt agreed with discharge to [facility].
PT OT SNF .
[employer] submitted for auth . Obtained auth Certified in total Cert # [id number] from to 05/24/25.
[facility] notified of auth .
Offered WC van transportation to patient . Pt will let me know..
[facility]
report [phone]
fax [phone]
PLAN To [facility]
[2025-05-18 11:34] VITALS: BP 116/72; PULSE 90; O2SAT 95
--- NOTE | 2025-05-18 12:02 | PTCARENOTE ---
Medication there were held in pharmacy returned to patient.
== END 2025-05-18 14:02 | DRG 565 ==
LOC: 4 EAST ACU 08:23
PROVIDERS: ADMITTING PHYSICIAN Hospitalist; ATTENDING PHYSICIAN Internal Medicine; CONSULT PHYSICIAN Orthopaedic Surgery; EMERGENCY PHYSICIAN Student in an Organized Health Care Education/Training Program; FAMILY PHYSICIAN Family Medicine
DX: T79.6XXA Traumatic ischemia of muscle, initial encounter (principal); S82.001A Unspecified fracture of right patella, initial encounter for closed fracture; K21.9 Gastro-esophageal reflux disease without esophagitis; F41.9 Anxiety disorder, unspecified; F32.A Depression, unspecified; K58.9 Irritable bowel syndrome, unspecified; W10.9XXA Fall (on) (from) unspecified stairs and steps, initial encounter; E87.6 Hypokalemia; F17.200 Nicotine dependence, unspecified, uncomplicated
CPT/HCPCS: 73564; 80048; 80053; 82248; 82550; 83735; 85025; 85027; 96361; 96374; 96375; 96376; 97116; 97163; 97166; 97530; 97535; 99284